=== PATIENT | male | born 1995 | race African-American/Black ===

== ENCOUNTER 2021-08-05 08:19 | Inpatient (IN) | payer SELFPAY ==
[2021-08-05] VITALS (15 sets, daily range): BP systolic 96–126; BP diastolic 46–65
[~2021-08-05] VITALS: Ht 193 cm; Wt 88.4 kg
[2021-08-05] MEDS: MIDAZOLAM 100mg/100ml NS BAG 100 ML IV PRN ×2 (09:06→15:34)
[2021-08-05] MEDS: PROPOFOL 100 ML IV PRN ×4 (09:06→23:09)
--- NOTE | 2021-08-05 09:14 | RAD ---
EXAMINATION: XR CHEST 1V CLINICAL HISTORY: confirm endotracheal tube. TECHNIQUE: XR CHEST 1V COMPARISON: 08/05/2021 7:17 AM FINDINGS/ IMPRESSION: Endotracheal tube remains in similar position terminating approximately 4.9 cm above the marvin. Vari ation in the distal margin of the tube likely affected by head position. Remainder of the study other silva unchanged. Electronically signed by: Ivan Garcia DO (08/05/2021 9:12 AM) NORMAN
[2021-08-05] MEDS ORDERED: diphenhydrAMINE 50 MG/ML VIAL IVP PRN (09:15)
[2021-08-05 09:17] LABS: BASE EXCESS COOX -1 mmol/L (-3-3); HCO3 COOX 24 mmol/L (21-28); METHEMOGLOBIN 0.4 % (0.0-1.9); OXYHEMOGLOBIN 97.5 %; PCO2 COOX 39 mmHg (35-46); PO2 COOX 178 mmHg (85-108); SAT O2 COOX 99 % (92-99)
[2021-08-05 09:34] LABS: BASO % 0 % (0-3); EOS % 0 % (0-3); HEMOGLOBIN 13.4 g/dL (13.0-17.5); LYMPH # 0.6 x10^3/uL (1.0-4.8); LYMPH % 5 % (24-48); MEAN CORPUSCULAR HEMOGLOBIN 30 pg (25-35); MEAN CORPUSCULAR HGB CONC 34 g/dL (31-37); MEAN CORPUSCULAR VOLUME 90 fL (79-100); MONO # 0.2 x10^3/uL (0.0-1.1); MONO % 2 % (0-9); NEUT # 11.7 x10^3/uL (1.8-7.7); NEUT % 93 % (31-73); PLATELET COUNT 270 x10^3/uL (140-400); RED BLOOD COUNT 4.43 x10^6/uL (4.30-5.70); RED CELL DISTRIBUTION WIDTH 13.9 % (11.5-14.5); WHITE BLOOD COUNT 12.6 x10^3/uL (4.0-11.0)
[2021-08-05 09:47] LABS: CALCIUM 7.9 mg/dL (8.5-10.1); CREATININE 1.1 mg/dL (0.7-1.3); GFR 97.9; POTASSIUM 4.1 mmol/L (3.5-5.1)
[2021-08-05 09:52] LABS: ALBUMIN 3.5 g/dL (3.4-5.0); ALBUMIN/GLOBULIN RATIO 1.2 (1.0-1.7); TOTAL BILIRUBIN 0.8 mg/dL (0.2-1.0); TOTAL PROTEIN 6.4 g/dL (6.4-8.2)
[2021-08-05 10:24] LABS: BARBITURATES NEG (NEG); BENZODIAZEPINES POS (NEG); CANNABINOIDS NEG (NEG); COCAINE POS (NEG); METHADONE NEG (NEG); OPIATES NEG (NEG); PHENCYCLIDINE NEG (NEG)
[2021-08-05] MEDS ORDERED: LEVE100020 PO (10:27)
[2021-08-05 10:29] LABS: AMPHETAMINE/METHAMPHETAMINE NEG (NEG)
[2021-08-05] MEDS: levETIRAcetam 1,000mg PREMIX 100 ML IV SCH ×2 (10:41→20:28)
[2021-08-05] MEDS: ENOXAPARIN 40 MG/0.4 ML SYRINGE. SQ SCH (10:41)
[2021-08-05] MEDS: FAMOTIDINE 20 MG/2 ML VIAL IVP SCH ×2 (10:41→20:28)
[2021-08-05] MEDS: IV DEXTROSE 5 %-0.45 % NACL 1,000 ML IV SCH ×2 (10:42→20:28)
--- NOTE | 2021-08-05 12:30 | HP ---
DATE OF SERVICE: 08/05/2021 ADMIT DATE: 08/05/2021 HISTORY OF PRESENT ILLNESS: The patient is a 25-year-old -Pak[place] male patient who presented to the Emergency Room of [facility] by privately owned vehicle for allergic reaction. The patient has an extremely swollen face and diffuse urticaria. He is known to have ALLERGY TO COCONUT. The patient was able to tell the ER physician that he used some shampoo that he thinks has coconut in it, and did not realize that when he used it. The patient has no significant medical history. He has no other complaints. He does state that his tongue is very swollen. He was given 1 mg of epinephrine intramuscular. He did improve. This did improve his condition. The patient was able to talk and answer questions. He remains very swollen. He was given another dose of intramuscular epinephrine. The patient was joking around and talking to us, but did state that he felt like his tongue was still getting bigger. He stated that he feels like he was having some trouble breathing throughout his entire process. The patient's oxygen saturation was 100% on room air. The patient was given the third dose of 1 mg of epinephrine and a decision was made to intubate the patient. The patient was successfully intubated and placed on propofol. He was given Solu-Medrol 125 mg together with famotidine and Benadryl, started on a propofol drip after obviously securing the endotracheal tube and confirmed its placement and was transferred to [facility] ICU to continue with mechanical ventilation and to consult the shale miner. Continue with steroids, antihistamines and H2 blockers. PAST MEDICAL HISTORY: On questioning his mother, apparently, the patient is known to have seizure disorder for which he is on Keppra 1000 mg twice a day, although [facility] make sure that this is the dose he is taking. He is apparently followed by Dr. Carson. PAST SURGICAL HISTORY: Significant for right hip fracture, status post open reduction and internal fixation and also right clavicular fracture that apparently was treated conservatively. ALLERGIES: HE IS ALLERGIC TO COCONUT. MEDICATIONS: He is on Keppra 1000 mg twice a day. FAMILY HISTORY: Noncontributory. SOCIAL HISTORY: He lives with his girlfriend. He does smoke cigarettes. He drinks alcohol. His mom does not know exactly how much. He also apparently uses marijuana. According to him, he quit smoking about less than a year ago. REVIEW OF SYSTEMS: Unobtainable. PHYSICAL EXAMINATION: GENERAL: On arrival to the Emergency Room of [facility], the patient has severe angioedema of the upper and lower lip, swollen tongue and diffusely swollen face; however, he was a well-developed, well-nourished, in no acute distress. VITAL SIGNS: His heart rate on arrival was 99, blood pressure was 133/78, temperature was 97.8, respiratory rate was 18 and oxygen saturation was 98%. HEAD, EYES, EARS, NOSE, AND THROAT: Normocephalic, atraumatic. NECK: Supple. HEART: Showed normal first and second heart sounds. No gallop, rub or murmur. CHEST: Shows central trachea, equal bilateral chest expansion, air entry, vesicular breath sounds. No crepitation or rhonchi. ABDOMEN: Distended, soft, nontender. NEUROLOGIC: He was alert, oriented x 3 with normal motor and sensory function. As I stated earlier, he was given 3 doses of epinephrine intramuscularly and was intubated and mechanically ventilated using rapid sequence technique. He received methylprednisolone, famotidine, and diphenhydramine, and received also Midazolam, fentanyl citrate and ketamine. His chest x-ray showed that he had an endotracheal tube terminating 5.6 cm above the marvin. The heart is normal in size. Lungs are well expanded and clear. No pleural effusion or pneumothorax. He apparently has another chest x-ray done showed mild interval advancement of the endotracheal tube, which now terminate 4.5 cm above the marvin. His blood gas showed a pH of 7.26, a pCO2 of 51, pO2 of 188, bicarbonate 23 and oxygen saturation was 99% on FiO2 of 50%. He did have his influenza A, B and SARS-CoV-2 antigen rapid testing was negative. ASSESSMENT AND PLAN: 1. In summary, this is a 25-year-old -Pakistani male patient with severe angioneurotic edema, presumably is allergic anaphylactic shock to coconut, it was an ingredient of body wash or shampoo. Apparently, has 2 episodes of ALLERGY TO COCONUT 1 WHEN USED THE CHAPSTICK WITH COCONUT THAT DEVELOPED SWOLLEN LIPS AND ANOTHER EPISODE WITH BODY LOTION THAT HAS COCONUT IT AND THAT CAUSED HIVES. 2. Acute respiratory failure due to upper airway obstruction, for which he was intubated and mechanically ventilated. 3. Seizure disorder for which he is on Keppra. We did consult the shale miner. We will continue with steroids, Benadryl and H2 blockers as well as his Keppra and monitor his response on a daily basis. BECKY DR: Serina TID: [id number]
[2021-08-05] MEDS: methylPREDNISolone SOD SUCC PF 40 MG/ML VIAL. IV SCH ×2 (14:00→21:42)
--- NOTE | 2021-08-05 14:36 | PDOC ---
PULMONARY PROGRESS NOTES DATE: 08/05/21 TIME: 14:35 Vitals Vital Signs Date Time Temp Pulse Resp B/P (MAP) Pulse Ox O2 Delivery O2 Flow Rate FiO2 08/05/21 14:00 79 22 99/49 (66) 97 Ventilator 08/05/21 12:00 99.4 99.4 Labs Laboratory Tests Test 08/05/21 09:05 08/05/21 10:05 White Blood Count 12.6 x10^3/uL (4.0-11.0) Red Blood Count 4.43 x10^6/uL (4.30-5.70) Hemoglobin 13.4 g/dL (13.0-17.5) Hematocrit 40.0 % (39.0-53.0) Mean Corpuscular Volume 90 fL (79-100) Mean Corpuscular Hemoglobin 30 pg (25-35) Mean Corpuscular Hemoglobin Concent 34 g/dL (31-37) Red Cell Distribution Width 13.9 % (11.5-14.5) Platelet Count 270 x10^3/uL (140-400) Neutrophils (%) (Auto) 93 % (31-73) Lymphocytes (%) (Auto) 5 % (24-48) Monocytes (%) (Auto) 2 % (0-9) Eosinophils (%) (Auto) 0 % (0-3) Basophils (%) (Auto) 0 % (0-3) Neutrophils # (Auto) 11.7 x10^3/uL (1.8-7.7) Lymphocytes # (Auto) 0.6 x10^3/uL (1.0-4.8) Monocytes # (Auto) 0.2 x10^3/uL (0.0-1.1) Eosinophils # (Auto) 0.0 x10^3/uL (0.0-0.7) Basophils # (Auto) 0.0 x10^3/uL (0.0-0.2) O2 Saturation 99 % (92-99) Arterial Blood pH 7.40 (7.35-7.45) Arterial Blood pCO2 at Patient Temp 39 mmHg (35-46) Arterial Blood pO2 at Patient Temp 178 mmHg (85-108) Arterial Blood HCO3 24 mmol/L (21-28) Arterial Blood Base Excess -1 mmol/L (-3-3) Oxyhemoglobin 97.5 % Methemoglobin 0.4 % (0.0-1.9) Carbon Monoxide, Quantitative 1.1 % (0.0-1.9) FiO2 50 Sodium Level 139 mmol/L (136-145) Potassium Level 4.1 mmol/L (3.5-5.1) Chloride Level 103 mmol/L (98-107) Carbon Dioxide Level 25 mmol/L (21-32) Anion Gap 11 (6-14) Blood Urea Nitrogen 11 mg/dL (8-26) Creatinine 1.1 mg/dL (0.7-1.3) Estimated GFR (Cockcroft-Gault) 97.9 BUN/Creatinine Ratio 10 (6-20) Glucose Level 130 mg/dL (70-99) Calcium Level 7.9 mg/dL (8.5-10.1) Total Bilirubin 0.8 mg/dL (0.2-1.0) Aspartate Amino Transf (AST/SGOT) 31 U/L (15-37) Alanine Aminotransferase (ALT/SGPT) 20 U/L (16-63) Alkaline Phosphatase 64 U/L (46-116) Creatine Kinase 403 U/L (39-308) Total Protein 6.4 g/dL (6.4-8.2) Albumin 3.5 g/dL (3.4-5.0) Albumin/Globulin Ratio 1.2 (1.0-1.7) Urine Opiates Screen Neg (NEG) Urine Methadone Screen Neg (NEG) Urine Barbiturates Neg (NEG) Urine Phencyclidine Screen Neg (NEG) Urine Amphetamine/Methamphetamine Neg (NEG) Urine Benzodiazepines Screen Pos (NEG) Urine Cocaine Screen Pos (NEG) Urine Cannabinoids Screen Neg (NEG) Urine Ethyl Alcohol Pos (NEG) Laboratory Tests Test 08/05/21 09:05 08/05/21 10:05 White Blood Count 12.6 x10^3/uL (4.0-11.0) Red Blood Count 4.43 x10^6/uL (4.30-5.70) Hemoglobin 13.4 g/dL (13.0-17.5) Hematocrit 40.0 % (39.0-53.0) Mean Corpuscular Volume 90 fL (79-100) Mean Corpuscular Hemoglobin 30 pg (25-35) Mean Corpuscular Hemoglobin Concent 34 g/dL (31-37) Red Cell Distribution Width 13.9 % (11.5-14.5) Platelet Count 270 x10^3/uL (140-400) Neutrophils (%) (Auto) 93 % (31-73) Lymphocytes (%) (Auto) 5 % (24-48) Monocytes (%) (Auto) 2 % (0-9) Eosinophils (%) (Auto) 0 % (0-3) Basophils (%) (Auto) 0 % (0-3) Neutrophils # (Auto) 11.7 x10^3/uL (1.8-7.7) Lymphocytes # (Auto) 0.6 x10^3/uL (1.0-4.8) Monocytes # (Auto) 0.2 x10^3/uL (0.0-1.1) Eosinophils # (Auto) 0.0 x10^3/uL (0.0-0.7) Basophils # (Auto) 0.0 x10^3/uL (0.0-0.2) O2 Saturation 99 % (92-99) Arterial Blood pH 7.40 (7.35-7.45) Arterial Blood pCO2 at Patient Temp 39 mmHg (35-46) Arterial Blood pO2 at Patient Temp 178 mmHg (85-108) Arterial Blood HCO3 24 mmol/L (21-28) Arterial Blood Base Excess -1 mmol/L (-3-3) Oxyhemoglobin 97.5 % Methemoglobin 0.4 % (0.0-1.9) Carbon Monoxide, Quantitative 1.1 % (0.0-1.9) FiO2 50 Sodium Level 139 mmol/L (136-145) Potassium Level 4.1 mmol/L (3.5-5.1) Chloride Level 103 mmol/L (98-107) Carbon Dioxide Level 25 mmol/L (21-32) Anion Gap 11 (6-14) Blood Urea Nitrogen 11 mg/dL (8-26) Creatinine 1.1 mg/dL (0.7-1.3) Estimated GFR (Cockcroft-Gault) 97.9 BUN/Creatinine Ratio 10 (6-20) Glucose Level 130 mg/dL (70-99) Calcium Level 7.9 mg/dL (8.5-10.1) Total Bilirubin 0.8 mg/dL (0.2-1.0) Aspartate Amino Transf (AST/SGOT) 31 U/L (15-37) Alanine Aminotransferase (ALT/SGPT) 20 U/L (16-63) Alkaline Phosphatase 64 U/L (46-116) Creatine Kinase 403 U/L (39-308) Total Protein 6.4 g/dL (6.4-8.2) Albumin 3.5 g/dL (3.4-5.0) Albumin/Globulin Ratio 1.2 (1.0-1.7) Urine Opiates Screen Neg (NEG) Urine Methadone Screen Neg (NEG) Urine Barbiturates Neg (NEG) Urine Phencyclidine Screen Neg (NEG) Urine Amphetamine/Methamphetamine Neg (NEG) Urine Benzodiazepines Screen Pos (NEG) Urine Cocaine Screen Pos (NEG) Urine Cannabinoids Screen Neg (NEG) Urine Ethyl Alcohol Pos (NEG) Medications Active Scripts Medications Dose Route/Sig Max Daily Dose Days Date Category Keppra (Levetiracetam) 1,000 Mg Tablet 1 Tab PO BID 30 08/05/21 Reported Impression . consult dictated acute resp fail angioedema NURYS ALBERTS MD Aug 05, 2021 14:36
[2021-08-06] VITALS (24 sets, daily range): BP systolic 92–138; BP diastolic 46–76
[2021-08-06] MEDS: IV DEXTROSE 5 %-0.45 % NACL 1,000 ML IV SCH ×2 (05:58→17:47)
[2021-08-06] MEDS: methylPREDNISolone SOD SUCC PF 40 MG/ML VIAL. IV SCH ×3 (05:58→21:36)
[2021-08-06] MEDS: MIDAZOLAM 100mg/100ml NS BAG 100 ML IV PRN (06:00)
[2021-08-06] MEDS: PROPOFOL 100 ML IV PRN ×2 (06:02→10:20)
[2021-08-06 06:08] LABS: HEMATOCRIT 36.5 % (39.0-53.0); HEMOGLOBIN 12.7 g/dL (13.0-17.5); RED BLOOD COUNT 4.17 x10^6/uL (4.30-5.70); RED CELL DISTRIBUTION WIDTH 13.8 % (11.5-14.5)
[2021-08-06 06:16] LABS: ALBUMIN 3.2 g/dL (3.4-5.0); GFR 109.3; TOTAL BILIRUBIN 0.7 mg/dL (0.2-1.0); TOTAL PROTEIN 6.3 g/dL (6.4-8.2)
--- NOTE | 2021-08-06 08:28 | PN ---
DATE: 08/06/2021 SUBJECTIVE: The patient has continued to be sedated, intubated and mechanically ventilated, continued to have markedly swollen face and lips. PHYSICAL EXAMINATION: GENERAL: When I examined him, there was no pallor, jaundice, cyanosis or thyromegaly. No jugular venous distention. No lower limb edema. VITAL SIGNS: His heart rate was 50, blood pressure was 92/46, temperature 98.3, respiratory rate 22, and oxygen saturation was 97% on FiO2 of 40%. HEAD, EYES, EARS, NOSE, AND THROAT: Showed he has markedly facial swelling, marked swollen lips. NECK: Supple. HEART: Normal first and second heart sounds. No gallop, rub or murmur. CHEST: Shows central trachea, equal bilateral expansion, air entry, vesicular breath sounds. I could not appreciate any crepitation or rhonchi. ABDOMEN: Distended, soft, nontender. NEUROLOGIC: He was heavily sedated. His intake and output are incompletely recorded. LABORATORY DATA: This morning showed a white cell count of 9000, hemoglobin 13, hematocrit 39, MCV 88 and platelet count 253,000. His chemistry showed a serum sodium 143, potassium 4, chloride 106, bicarbonate 23, anion gap of 14, BUN 11, creatinine 1, estimated GFR was 109 mL per minute. His glucose 141, calcium was 8. Total bilirubin, AST, ALT, alkaline phosphatase were normal. Total protein 6.3, albumin 3.2. ASSESSMENT: 1. Severe anaphylactic shock and angioneurotic edema due to ALLERGY TO COCONUT with markedly swollen face, lips and tongue, for which he was successfully intubated. 2. Upper airway obstruction, for which he was successfully intubated, continues to be sedated, mechanically ventilated. 3. Seizure disorder, for which he is on Keppra. PLAN: Obvious to continue steroids, Benadryl, and H2 blockers. Continue with Keppra for seizure disorder. Continue with mechanical ventilation and wean as tolerated. LINDA DR: Serina TID: [id number]
[2021-08-06] MEDS: FAMOTIDINE 20 MG/2 ML VIAL IVP SCH ×2 (08:31→20:35)
[2021-08-06] MEDS: levETIRAcetam 1,000mg PREMIX 100 ML IV SCH ×2 (08:32→20:35)
--- NOTE | 2021-08-06 08:42 | PDOC ---
PULMONARY PROGRESS NOTES DATE: 08/06/21 TIME: 08:41 Subjective Patient sedated, no overnight events Assist-control ventilation Vitals Vital Signs Date Time Temp Pulse Resp B/P (MAP) Pulse Ox O2 Delivery O2 Flow Rate FiO2 08/06/21 06:29 97 08/06/21 06:00 50 22 92/46 (61) Ventilator 08/06/21 04:00 98.3 98.3 Lungs: Clear Cardiovascular: S1, S2 Abdomen: Soft Extremities: No Edema Skin: Warm Labs Laboratory Tests Test 08/05/21 09:05 08/05/21 10:05 08/06/21 05:10 White Blood Count 12.6 x10^3/uL (4.0-11.0) 9.0 x10^3/uL (4.0-11.0) Red Blood Count 4.43 x10^6/uL (4.30-5.70) 4.17 x10^6/uL (4.30-5.70) Hemoglobin 13.4 g/dL (13.0-17.5) 12.7 g/dL (13.0-17.5) Hematocrit 40.0 % (39.0-53.0) 36.5 % (39.0-53.0) Mean Corpuscular Volume 90 fL (79-100) 88 fL (79-100) Mean Corpuscular Hemoglobin 30 pg (25-35) 31 pg (25-35) Mean Corpuscular Hemoglobin Concent 34 g/dL (31-37) 35 g/dL (31-37) Red Cell Distribution Width 13.9 % (11.5-14.5) 13.8 % (11.5-14.5) Platelet Count 270 x10^3/uL (140-400) 253 x10^3/uL (140-400) Neutrophils (%) (Auto) 93 % (31-73) Lymphocytes (%) (Auto) 5 % (24-48) Monocytes (%) (Auto) 2 % (0-9) Eosinophils (%) (Auto) 0 % (0-3) Basophils (%) (Auto) 0 % (0-3) Neutrophils # (Auto) 11.7 x10^3/uL (1.8-7.7) Lymphocytes # (Auto) 0.6 x10^3/uL (1.0-4.8) Monocytes # (Auto) 0.2 x10^3/uL (0.0-1.1) Eosinophils # (Auto) 0.0 x10^3/uL (0.0-0.7) Basophils # (Auto) 0.0 x10^3/uL (0.0-0.2) O2 Saturation 99 % (92-99) Arterial Blood pH 7.40 (7.35-7.45) Arterial Blood pCO2 at Patient Temp 39 mmHg (35-46) Arterial Blood pO2 at Patient Temp 178 mmHg (85-108) Arterial Blood HCO3 24 mmol/L (21-28) Arterial Blood Base Excess -1 mmol/L (-3-3) Oxyhemoglobin 97.5 % Methemoglobin 0.4 % (0.0-1.9) Carbon Monoxide, Quantitative 1.1 % (0.0-1.9) FiO2 50 Sodium Level 139 mmol/L (136-145) 143 mmol/L (136-145) Potassium Level 4.1 mmol/L (3.5-5.1) 4.0 mmol/L (3.5-5.1) Chloride Level 103 mmol/L (98-107) 106 mmol/L (98-107) Carbon Dioxide Level 25 mmol/L (21-32) 23 mmol/L (21-32) Anion Gap 11 (6-14) 14 (6-14) Blood Urea Nitrogen 11 mg/dL (8-26) 11 mg/dL (8-26) Creatinine 1.1 mg/dL (0.7-1.3) 1.0 mg/dL (0.7-1.3) Estimated GFR (Cockcroft-Gault) 97.9 109.3 BUN/Creatinine Ratio 10 (6-20) 11 (6-20) Glucose Level 130 mg/dL (70-99) 141 mg/dL (70-99) Calcium Level 7.9 mg/dL (8.5-10.1) 8.0 mg/dL (8.5-10.1) Total Bilirubin 0.8 mg/dL (0.2-1.0) 0.7 mg/dL (0.2-1.0) Aspartate Amino Transf (AST/SGOT) 31 U/L (15-37) 15 U/L (15-37) Alanine Aminotransferase (ALT/SGPT) 20 U/L (16-63) 18 U/L (16-63) Alkaline Phosphatase 64 U/L (46-116) 54 U/L (46-116) Creatine Kinase 403 U/L (39-308) Total Protein 6.4 g/dL (6.4-8.2) 6.3 g/dL (6.4-8.2) Albumin 3.5 g/dL (3.4-5.0) 3.2 g/dL (3.4-5.0) Albumin/Globulin Ratio 1.2 (1.0-1.7) 1.0 (1.0-1.7) Urine Opiates Screen Neg (NEG) Urine Methadone Screen Neg (NEG) Urine Barbiturates Neg (NEG) Urine Phencyclidine Screen Neg (NEG) Urine Amphetamine/Methamphetamine Neg (NEG) Urine Benzodiazepines Screen Pos (NEG) Urine Cocaine Screen Pos (NEG) Urine Cannabinoids Screen Neg (NEG) Urine Ethyl Alcohol Pos (NEG) Laboratory Tests Test 08/05/21 09:05 08/05/21 10:05 08/06/21 05:10 White Blood Count 12.6 x10^3/uL (4.0-11.0) 9.0 x10^3/uL (4.0-11.0) Red Blood Count 4.43 x10^6/uL (4.30-5.70) 4.17 x10^6/uL (4.30-5.70) Hemoglobin 13.4 g/dL (13.0-17.5) 12.7 g/dL (13.0-17.5) Hematocrit 40.0 % (39.0-53.0) 36.5 % (39.0-53.0) Mean Corpuscular Volume 90 fL (79-100) 88 fL (79-100) Mean Corpuscular Hemoglobin 30 pg (25-35) 31 pg (25-35) Mean Corpuscular Hemoglobin Concent 34 g/dL (31-37) 35 g/dL (31-37) Red Cell Distribution Width 13.9 % (11.5-14.5) 13.8 % (11.5-14.5) Platelet Count 270 x10^3/uL (140-400) 253 x10^3/uL (140-400) Neutrophils (%) (Auto) 93 % (31-73) Lymphocytes (%) (Auto) 5 % (24-48) Monocytes (%) (Auto) 2 % (0-9) Eosinophils (%) (Auto) 0 % (0-3) Basophils (%) (Auto) 0 % (0-3) Neutrophils # (Auto) 11.7 x10^3/uL (1.8-7.7) Lymphocytes # (Auto) 0.6 x10^3/uL (1.0-4.8) Monocytes # (Auto) 0.2 x10^3/uL (0.0-1.1) Eosinophils # (Auto) 0.0 x10^3/uL (0.0-0.7) Basophils # (Auto) 0.0 x10^3/uL (0.0-0.2) O2 Saturation 99 % (92-99) Arterial Blood pH 7.40 (7.35-7.45) Arterial Blood pCO2 at Patient Temp 39 mmHg (35-46) Arterial Blood pO2 at Patient Temp 178 mmHg (85-108) Arterial Blood HCO3 24 mmol/L (21-28) Arterial Blood Base Excess -1 mmol/L (-3-3) Oxyhemoglobin 97.5 % Methemoglobin 0.4 % (0.0-1.9) Carbon Monoxide, Quantitative 1.1 % (0.0-1.9) FiO2 50 Sodium Level 139 mmol/L (136-145) 143 mmol/L (136-145) Potassium Level 4.1 mmol/L (3.5-5.1) 4.0 mmol/L (3.5-5.1) Chloride Level 103 mmol/L (98-107) 106 mmol/L (98-107) Carbon Dioxide Level 25 mmol/L (21-32) 23 mmol/L (21-32) Anion Gap 11 (6-14) 14 (6-14) Blood Urea Nitrogen 11 mg/dL (8-26) 11 mg/dL (8-26) Creatinine 1.1 mg/dL (0.7-1.3) 1.0 mg/dL (0.7-1.3) Estimated GFR (Cockcroft-Gault) 97.9 109.3 BUN/Creatinine Ratio 10 (6-20) 11 (6-20) Glucose Level 130 mg/dL (70-99) 141 mg/dL (70-99) Calcium Level 7.9 mg/dL (8.5-10.1) 8.0 mg/dL (8.5-10.1) Total Bilirubin 0.8 mg/dL (0.2-1.0) 0.7 mg/dL (0.2-1.0) Aspartate Amino Transf (AST/SGOT) 31 U/L (15-37) 15 U/L (15-37) Alanine Aminotransferase (ALT/SGPT) 20 U/L (16-63) 18 U/L (16-63) Alkaline Phosphatase 64 U/L (46-116) 54 U/L (46-116) Creatine Kinase 403 U/L (39-308) Total Protein 6.4 g/dL (6.4-8.2) 6.3 g/dL (6.4-8.2) Albumin 3.5 g/dL (3.4-5.0) 3.2 g/dL (3.4-5.0) Albumin/Globulin Ratio 1.2 (1.0-1.7) 1.0 (1.0-1.7) Urine Opiates Screen Neg (NEG) Urine Methadone Screen Neg (NEG) Urine Barbiturates Neg (NEG) Urine Phencyclidine Screen Neg (NEG) Urine Amphetamine/Methamphetamine Neg (NEG) Urine Benzodiazepines Screen Pos (NEG) Urine Cocaine Screen Pos (NEG) Urine Cannabinoids Screen Neg (NEG) Urine Ethyl Alcohol Pos (NEG) Medications Active Scripts Medications Dose Route/Sig Max Daily Dose Days Date Category Keppra (Levetiracetam) 1,000 Mg Tablet 1 Tab PO BID 30 08/05/21 Reported Impression . IMPRESSION: 1. Acute respiratory failure secondary to angioedema. 2. Angioedema. 3. History of seizure. 4. History of tobacco and marijuana use. 5. History of hip surgery. 6. Urine drug screen positive for cocaine, benzodiazepines, alcohol. Plan . Updated 08/06 Deflated the cuff, air movement auscultated We will DC sedation and extubate Continue current support with steroids Pepcid and antihistamines Discussed with RN and RT PLAN AND RECOMMENDATIONS: 1. Titrate FiO2 to keep O2 saturation 94%. 2. Continue ventilator support. Ventilator setting was reviewed. We will do ABG. Change vent setting per ABG. 3. Chest x-ray is done and reviewed. 4. Start Solu-Medrol 40 mg IV every 8 hours. 5. COVID testing. 6. Pepcid 20 mg IV b.i.d. 7. Lovenox for DVT prophylaxis. 8. Continue ventilator support until the patient's edema is improved. 9. Elevate head of bed. 10. The findings and recommendations were discussed with RN and RT and Dr. Byrnes, attending physician. Thank you very much for allowing me to participate in care of this very nice gentleman. EVELIO ALONSO MD Aug 06, 2021 08:41
--- NOTE | 2021-08-06 09:10 | CONS ---
DATE OF CONSULTATION: 08/05/2021 FAMILY HISTORY: Hypertension. REVIEW OF SYSTEMS: Unable to obtain. The patient is on the ventilator, sedated. PHYSICAL EXAMINATION: VITAL SIGNS: His O2 saturation on 50% FiO2 and PEEP of 5 is 100%, respiratory rate 22, heart rate 95, blood pressure 126/65, temperature 96.4. HEENT: Normocephalic, atraumatic. Pupils equal, round, reactive to light. He has edema to his lips and tongue and face. NECK: Short. There is no lymphadenopathy or thyromegaly. CARDIOVASCULAR: Regular rate and rhythm. CHEST: Inspection is normal. LUNGS: Clear to auscultation. There is no wheezing. ABDOMEN: Soft. Bowel sounds are good. There is no mass. EXTREMITIES: There is no edema. LYMPHATICS: There is no lymphadenopathy. LABORATORY DATA: I reviewed the following lab data. A stat portable chest x-ray was done here. ET tube is in good position. There is increased interstitial marking. Rest of labs are pending. IMPRESSION: 1. Acute respiratory failure secondary to angioedema. 2. Angioedema. 3. History of seizure. 4. History of tobacco and marijuana use. 5. History of hip surgery. PLAN AND RECOMMENDATIONS: 1. Titrate FiO2 to keep O2 saturation 94%. 2. Continue ventilator support. Ventilator setting was reviewed. We will do ABG. Change vent setting per ABG. 3. Chest x-ray is done and reviewed. 4. Start Solu-Medrol 40 mg IV every 8 hours. 5. COVID testing. 6. Pepcid 20 mg IV b.i.d. 7. Lovenox for DVT prophylaxis. 8. Continue ventilator support until the patient's edema is improved. 9. Elevate head of bed. 10. The findings and recommendations were discussed with RN and RT and Dr. Byrnes, attending physician. Thank you very much for allowing me to participate in care of this very nice gentleman. JENISE/GREGORY/NATALI OLVERA: EJNISE/elvia TID: [id number] MTDD
[2021-08-06 09:28] LABS: BASE EXCESS ABG -1 mmol/L (-3-3); HCO3 ABG 22 mmol/L (21-28); PCO2 ABG 34 mmHg (35-46); PO2 ABG 121 mmHg (85-108); SAT O2 ABG 98 % (92-99)
[2021-08-06] MEDS: ENOXAPARIN 40 MG/0.4 ML SYRINGE. SQ SCH (10:19)
[2021-08-06 12:36] LABS: FIO2 ABG 40% AC 22 500 5
[2021-08-06] MEDS: diphenhydrAMINE 50 MG/ML VIAL IVP SCH ×2 (14:59→20:35)
--- NOTE | 2021-08-06 16:33 | NUR ---
SS following for discharge planning. SS reviewed pt chart and discussed with pt RN. Pt is from home. Pt extubated and is currently requiring oxygen at two liters nasal canula. Pt on IV Solu-Medrol, IV Benadryl, and IV Keppra. Not ready. Self pay. Med Assist following. SS will continue to follow for discharge planning.
[2021-08-07] VITALS (13 sets, daily range): BP systolic 103–125; BP diastolic 55–63
[2021-08-07] MEDS: IV DEXTROSE 5 %-0.45 % NACL 1,000 ML IV SCH (01:34)
[2021-08-07] MEDS: methylPREDNISolone SOD SUCC PF 40 MG/ML VIAL. IV SCH (06:06)
[2021-08-07] MEDS: ENOXAPARIN 40 MG/0.4 ML SYRINGE. SQ SCH (08:09)
[2021-08-07] MEDS: FAMOTIDINE 20 MG/2 ML VIAL IVP SCH (08:10)
[2021-08-07] MEDS: diphenhydrAMINE 50 MG/ML VIAL IVP SCH (08:10)
[2021-08-07] MEDS: levETIRAcetam 1,000mg PREMIX 100 ML IV SCH (08:18)
[2021-08-07] MEDS ORDERED: diphenhydrAMINE HCL 25 MG CAPSULE PO PRN (08:45)
[2021-08-07] MEDS ORDERED: FAMOTIDINE 20 MG TABLET. PO SCH (09:00)
[2021-08-07] MEDS ORDERED: levETIRAcetam 500 MG TABLET PO SCH (09:00)
--- NOTE | 2021-08-07 09:53 | PDOC ---
PULMONARY PROGRESS NOTES DATE: 08/07/21 TIME: 09:48 Subjective Patient extubated yesterday, no overnight events, on room air with 97% O2 saturation Patient to discharge home today, Vitals Vital Signs Date Time Temp Pulse Resp B/P (MAP) Pulse Ox O2 Delivery O2 Flow Rate FiO2 08/07/21 09:00 81 16 118/63 (81) 95 Room Air 08/07/21 08:00 90.0 90.0 08/07/21 07:00 2.0 General: Alert Lungs: Clear Cardiovascular: S1, S2 Abdomen: Soft Extremities: No Edema Skin: Warm, No Rashes Labs Laboratory Tests Test 08/05/21 10:05 08/06/21 05:10 08/06/21 09:20 Urine Opiates Screen Neg (NEG) Urine Methadone Screen Neg (NEG) Urine Barbiturates Neg (NEG) Urine Phencyclidine Screen Neg (NEG) Urine Amphetamine/Methamphetamine Neg (NEG) Urine Benzodiazepines Screen Pos (NEG) Urine Cocaine Screen Pos (NEG) Urine Cannabinoids Screen Neg (NEG) Urine Ethyl Alcohol Pos (NEG) White Blood Count 9.0 x10^3/uL (4.0-11.0) Red Blood Count 4.17 x10^6/uL (4.30-5.70) Hemoglobin 12.7 g/dL (13.0-17.5) Hematocrit 36.5 % (39.0-53.0) Mean Corpuscular Volume 88 fL (79-100) Mean Corpuscular Hemoglobin 31 pg (25-35) Mean Corpuscular Hemoglobin Concent 35 g/dL (31-37) Red Cell Distribution Width 13.8 % (11.5-14.5) Platelet Count 253 x10^3/uL (140-400) Sodium Level 143 mmol/L (136-145) Potassium Level 4.0 mmol/L (3.5-5.1) Chloride Level 106 mmol/L (98-107) Carbon Dioxide Level 23 mmol/L (21-32) Anion Gap 14 (6-14) Blood Urea Nitrogen 11 mg/dL (8-26) Creatinine 1.0 mg/dL (0.7-1.3) Estimated GFR (Cockcroft-Gault) 109.3 BUN/Creatinine Ratio 11 (6-20) Glucose Level 141 mg/dL (70-99) Calcium Level 8.0 mg/dL (8.5-10.1) Total Bilirubin 0.7 mg/dL (0.2-1.0) Aspartate Amino Transf (AST/SGOT) 15 U/L (15-37) Alanine Aminotransferase (ALT/SGPT) 18 U/L (16-63) Alkaline Phosphatase 54 U/L (46-116) Total Protein 6.3 g/dL (6.4-8.2) Albumin 3.2 g/dL (3.4-5.0) Albumin/Globulin Ratio 1.0 (1.0-1.7) O2 Saturation 98 % (92-99) Arterial Blood pH 7.44 (7.35-7.45) Arterial Blood pCO2 at Patient Temp 34 mmHg (35-46) Arterial Blood pO2 at Patient Temp 121 mmHg (85-108) Arterial Blood HCO3 22 mmol/L (21-28) Arterial Blood Base Excess -1 mmol/L (-3-3) FiO2 40% ac 22 500 5 Medications Active Scripts Medications Dose Route/Sig Max Daily Dose Days Date Category Keppra (Levetiracetam) 1,000 Mg Tablet 1 Tab PO BID 30 08/05/21 Reported Impression . IMPRESSION: 1. Acute respiratory failure secondary to angioedema. 2. Angioedema. 3. History of seizure. 4. History of tobacco and marijuana use. 5. History of hip surgery. 6. Urine drug screen positive for cocaine, benzodiazepines, alcohol. Plan . Updated 08/07 Extubated 08/06 Currently on room air Patient to discharge home today Discussed life choices; discontinuation of illicit drug use Discussed with RN Updated 08/06 Deflated the cuff, air movement auscultated We will DC sedation and extubate Continue current support with steroids Pepcid and antihistamines Discussed with RN and RT PLAN AND RECOMMENDATIONS: 1. Titrate FiO2 to keep O2 saturation 94%. 2. Continue ventilator support. Ventilator setting was reviewed. We will do ABG. Change vent setting per ABG. 3. Chest x-ray is done and reviewed. 4. Start Solu-Medrol 40 mg IV every 8 hours. 5. COVID testing. 6. Pepcid 20 mg IV b.i.d. 7. Lovenox for DVT prophylaxis. 8. Continue ventilator support until the patient's edema is improved. 9. Elevate head of bed. 10. The findings and recommendations were discussed with RN and RT and Dr. Byrnes, attending physician. Thank you very much for allowing me to participate in care of this very nice gentleman. MIRIAM DU MD Aug 07, 2021 09:53
--- NOTE | 2021-08-07 10:32 | PN ---
DATE: 08/07/2021 SUBJECTIVE: The patient is sitting slightly propped up in bed, in no apparent distress, eating his breakfast comfortably. On questioning him, he stated he is very hungry. He was obviously successfully extubated, did very well in his swallowing evaluation. He is now on a regular diet, thin liquid. All the swelling of his face, lips and tongue has largely subsided. He is now maintaining his oxygen saturation at 96% on 2 liters of oxygen. PHYSICAL EXAMINATION: GENERAL: When I examined him, he looked well and was clearly in no apparent respiratory distress. No pallor, jaundice, cyanosis or thyromegaly. No jugular venous distention. No lower limb edema. VITAL SIGNS: His heart rate was 51, blood pressure was 115/55, temperature 98.4, respiratory rate was 16 and oxygen saturation was 96% on 2 liters of oxygen. HEAD, EYES, EARS, NOSE, AND THROAT: Normocephalic, atraumatic. NECK: Supple. HEART: Normal first and second heart sounds. No gallop or murmur. CHEST: Clear to auscultation, no crepitation or rhonchi. ABDOMEN: Distended, soft, nontender. NEUROLOGIC: He was grossly intact. His intake was 2800, output was 2250. LABORATORY DATA: As of yesterday, his white cell count was 9000, hemoglobin 13, hematocrit 37, MCV 88 and platelet count 253,000. Serum sodium was 143, potassium 4, chloride 106, bicarbonate 23, anion gap of 14, BUN 11, creatinine 1, estimated GFR was 109 mL per minute. His glucose 141, calcium was 8. Total bilirubin, AST, ALT, alkaline phosphatase were normal. Total protein 6.3, albumin 3.2. ASSESSMENT: 1. Severe angioneurotic edema due to ALLERGY TO COCONUT with resultant upper airway obstruction with markedly swollen face, lips and tongue, resultant acute respiratory failure, requiring intubation and mechanical ventilation; however, he was successfully extubated. 2. Seizure disorder, for which he is on Keppra. PLAN: Obviously to switch his Keppra to be given orally. Start all his medications to be switched orally and he probably should be able to be discharged home sometime today. ELIZABETH/BOLA/HOOD DR: Serina TID: [id number]
[2021-08-07] MEDS ORDERED: LEVE500T56 PO (11:22)
[2021-08-07] MEDS ORDERED: FAMO20TA5 PO (11:22)
[2021-08-07] MEDS ORDERED: DIPH25CA58 PO (11:22)
--- NOTE | 2021-08-07 13:32 | NUR ---
Discharge Note: [facility] Discharge instructions and discharge home medications reviewed with Patient and mother a copy given plus prescriptions for Prednisone tapered dosage, Keppra, and Pepcid. All questions have been answered and understanding verbalized. The following instructions and handouts were given: Anaphylactic. Discontinued iv lines and drains catheter intact. Patient discharged to home with self-care via private vehicle.
== END 2021-08-07 13:41 | disposition home or self-care (01) | DRG 208 ==
LOC: 1 WEST ICU 08:19
PROVIDERS: ADMIT Internal Medicine; ATTEND Internal Medicine
PROC: 5A1945Z Respiratory Ventilation, 24-96 Consecutive Hours (ICD-10-PCS; principal; 2021-08-05)
PROC: 0BH17EZ Insertion of Endotracheal Airway into Trachea, Via Natural or Artificial Opening (ICD-10-PCS; 2021-08-05)
DX: J96.00 Acute respiratory failure, unspecified whether with hypoxia or hypercapnia (principal); T78.2XXA Anaphylactic shock, unspecified, initial encounter; T78.3XXA Angioneurotic edema, initial encounter; F12.90 Cannabis use, unspecified, uncomplicated; F17.210 Nicotine dependence, cigarettes, uncomplicated; G40.909 Epilepsy, unspecified, not intractable, without status epilepticus; Z82.49 Family history of ischemic heart disease and other diseases of the circulatory system; Z88.8 Allergy status to other drugs, medicaments and biological substances
CPT/HCPCS: 36415; 36600; 71045; 80053; 80307; 82550; 82805; 85025; 85027; 94002; 94003; J1200; J1650; J2250; J2704; J2920; J3010; J3490; J7042; G0378